=== PATIENT | female | born 1970 | race Caucasian/White ===

== ENCOUNTER 2025-02-19 11:24 | Day surgery (SDC) | payer OTHER ==
[2025-02-15 11:08] VITALS: BMI 28.6
[2025-02-19] MEDS ORDERED: PROPOFOL 60 ML ONE (11:32)
[2025-02-19] MEDS ORDERED: Lidocaine 2% PF 100 mg/5 ml Syringe ONE (11:34)
[2025-02-19] MEDS ORDERED: PHENYLEPHRINE-NS 100 MCG/ML 10 ML SYRINGE ONE (13:48)
== END 2025-02-19 15:05 | disposition home or self-care (01) ==
LOC: EDSEX 11:24 → CSHSDC 11:24
PROVIDERS: ATTEND Surgery
PROC: 0DJD8ZZ Inspection of Lower Intestinal Tract, Via Natural or Artificial Opening Endoscopic (ICD-10-PCS; principal; 2025-02-19)
DX: Z12.11 Encounter for screening for malignant neoplasm of colon (principal); K57.30 Diverticulosis of large intestine without perforation or abscess without bleeding; Z90.49 Acquired absence of other specified parts of digestive tract; Z90.89 Acquired absence of other organs
CPT/HCPCS: J2003; J2250; J2704